=== PATIENT | male | born 1990 | race Caucasian/White ===

== ENCOUNTER 2021-11-10 06:57 | Day surgery (SDC) | payer OTHER ==
[2021-11-10] MEDS ORDERED: Ringers Lactate 1,000 ML IV ONE (07:05)
[2021-11-10] MEDS ORDERED: OXYMETAZOLINE HCL 0.05% 15ML NAS ONE (08:15)
[2021-11-10] MEDS ORDERED: LIDOCAINE 1% W/EPI 1:100,000 10 ML VIAL ONE (08:15)
[2021-11-10] MEDS ORDERED: CELECOXIB 100 MG CAPSULE ONE (08:26)
[2021-11-10] MEDS ORDERED: ACETAMINOPHEN 160 MG/5 ML UCUP ONE (08:26)
[2021-11-10] MEDS ORDERED: FENTANYL CITR 100 MCG/2 ML ONE ×2 (08:28→09:37)
[2021-11-10] MEDS ORDERED: MIDAZOLAM HCL 2 MG/2 ML INJ ONE (08:29)
[2021-11-10] MEDS ORDERED: LIDOCAINE 2% MPF 5 ML VIAL ONE (08:29)
[2021-11-10] MEDS ORDERED: propofoL 200 MG/20 ML VIAL IV ONE (08:29)
[2021-11-10] MEDS ORDERED: ONDANSETRON 4 MG/2 ML VIAL ONE ×2 (08:30→11:32)
[2021-11-10] MEDS ORDERED: ROCURONIUM 50 MG/5 ML VIAL IV ONE (08:32)
[2021-11-10] MEDS ORDERED: GLYCOPYRROLATE 0.2 MG/ML SYR ONE (08:32)
[2021-11-10] MEDS ORDERED: dexAMETHasone 10 MG/ML VIAL ONE (08:32)
[2021-11-10] MEDS ORDERED: NEOSTIGMINE 1 MG/ML -5 ML ONE (08:34)
[2021-11-10] MEDS ORDERED: NA CHLORIDE 0.9% 500 ML ONE (09:14)
[2021-11-10] MEDS ORDERED: KETOROLAC 30 MG/ML INJ ONE (09:38)
[2021-11-10] MEDS ORDERED: OFLOXACIN OPH 0.3%-5 ML BTL ONE (09:53)
[2021-11-10] MEDS ORDERED: EPINEPHRINE/PF 1 MG/ML AMP ONE (10:23)
[2021-11-10] MEDS ORDERED: BACITRACIN OINTMENT 14 GM TUBE TOP ONE (10:29)
--- NOTE | 2021-11-10 12:15 | P.BOP ---
Preoperative diagnosis: Left central tympanic perforation Postoperative diagnosis: Same Primary procedure: Left tympanoplasty with canal plasty [employer]: NONE,NONE Estimated blood loss: Less than 10 mL Specimen: None Findings: Anterior perforation with prominent anterior canal wall Anesthesia: General Complications: None Fluids & blood products: See anesthesia record Transferred to: Recovery Room Condition: Good
[2021-11-10 13:02] VITALS: BP 121/78; TEMP 97.2; O2SAT 97
--- NOTE | 2021-11-12 10:34 | OP ---
Date of Procedure: 11/10/2021 Surgeon: Opal Beard MD Preoperative Diagnosis: Left central tympanic perforation. Postoperative Diagnosis: Left central tympanic perforation. Procedure: Left tympanoplasty with canal plasty. Indication For Procedure: Mr. Mathews presented [facility] after failing a work based audiogram with findings demonstrating a conductive hearing loss and tympanic perforation with myringosclerosis . The patient did not have any significant infection and a plan was made for surgical repair of the eardrum. The patient was initially scheduled for September, but had an asymptomatic positive COVID bk t requiring delay of surgery. Description Of Procedure: The patient was brought to the operating room. He was placed under genera l anesthetic via oral endotracheal tube. The head of bed was turned 90 degrees. The head was turned toward the right for exposure of the left ear. The left ear canal was cleaned using a curette and t he eardrum was examined under the operating microscope. The perforation was noted to be somewhat ant erior and composing approximately 30% of the patient's eardrum. The surrounding the eardrum was some what thickened and scarred. The patient's anterior canal wall was prominent and partially obstructed the full view of the perforation. The postauricular region and the ear canal were cleaned and injec marc with 1% lidocaine with epinephrine. The canal was then prepped with Betadine. Using a cotton sw ab, a cotton ball was placed at the meatus to prevent excess Betadine from entering the middle ear sp courtney. The external ear was then prepped with Betadine and draped in a standard fashion using 10/10 an d sterile surgical towels followed by 10/20 drape. The posterior crease was incised using a 15-blade scalpel and a Bovie electrocautery was used to provide hemostasis and divide down to the temporalis fascia. A knife, iris scissors, and forceps were used to collect a graft from the temporalis fascia, which was pressed and set to dry. Attention was then turned to the ear canal. A pick and alligator forceps and Fish elevators were used to ream the edge of the perforation in order to freshen the edg e and promote graft adhesion. A round knife was then used to make an incision at the bony cartilagin ous junction of the ear canal and a Duckbill elevator and suction were used to elevate the tympanomea pedrito flap taking care to elevate more extensively along the anterior wall. Once the flap was adequate ly elevated, the flap was protected using a small bit of foil from the suture packet and a 2 and 3 mm cutting bur were used to perform a canal plasty judiciously along the anterior wall in order to impr ove visualization. During drilling, the ear canal was irrigated with sterile saline and suctioned fr om bone dust and debris. The foil was then removed and the ear canal was carefully cleaned and sucti oned from bone dust and debris. The Sesay elevator was then used to complete elevation of the tymp anomeatal flap including identification of the fibrous anulus. The middle ear was then entered and c arefully explored. There was no evidence of cholesteatoma, infection or granulation noted. The midd le ear was filled with ofloxacin soaked pressed fragments of surgical foam to provide support to the graft. The graft was carefully trimmed to the appropriate size and placed in a medial onlay fashion across the perforation. The tympanomeatal flap was then replaced to its natural position and visuali zation confirmed adequate coverage of the perforation and support of the graft. The ear canal was th en carefully filled with fragments of ofloxacin soaked and dry fragments of surgical foam in order to improve adhesion of the TM to the graft. After the ear canal was completely filled, attention was t urned back to the postauricular incision which was closed in a layered fashion using 4-0 Vicryl and 5 -0 fast-absorbing gut. A Xeroform dressing was applied over the incision. A cotton ball was placed at the meatus and a mastoid dressing was applied. The patient was then returned to care of Anesthesi a for awakening and extubation in the operating room, which proceeded without difficulty. Complications: None. Disposition: The patient will be discharged home later today in the care of his family with prescrip tions for ofloxacin, Zofran, and pain medications. Written instructions regarding postoperative care including nasal and ear precautions were given to the patient upon discharge and he will follow up [facility] Dr. Beard in 1 month. ANG/NOVA Voice ID: [id number] Report ID: [id number]
== END 2021-11-10 13:50 | disposition home or self-care (01) ==
LOC: OR 06:57
PROVIDERS: ATTEND Otolaryngology
PROC: 09B1XZZ Excision of Left External Ear, External Approach (ICD-10-PCS; 2021-11-10)
PROC: 09R877Z Replacement of Left Tympanic Membrane with Autologous Tissue Substitute, Via Natural or Artificial Opening (ICD-10-PCS; principal; 2021-11-10 08:30)
DX: H72.02 Central perforation of tympanic membrane, left ear (principal); U07.1 COVID-19
CPT/HCPCS: 69631; 21235; U0002; J2704; J0171; J2250; J3010 ×2; J1100; J2710; J7120; J7040; J2405 ×2